=== PATIENT | male | born 1995 | race Caucasian/White ===

== ENCOUNTER 2018-03-25 15:20 | Emergency (ER) | payer OTHER ==
[~2018-03-25] VITALS: Ht 180.3 cm; Wt 68.2 kg
[2018-03-25 15:25] VITALS: BP 114/57; TEMP 98
[2018-03-25 15:46] VITALS: PULSE 77
== END 2018-03-25 15:46 | disposition home or self-care (01) ==
LOC: COL.ER 15:20
DX: S90.561A Insect bite (nonvenomous), right ankle, initial encounter (principal); M25.471 Effusion, right ankle; W57.XXXA Bitten or stung by nonvenomous insect and other nonvenomous arthropods, initial encounter